=== PATIENT | female | born 1985 | race Caucasian/White ===

== ENCOUNTER 2016-11-26 19:29 | Emergency (ER) | payer MEDICAID, OTHER ==
[~2016-11-26] VITALS: Ht 160 cm; Wt 55.0 kg
[2016-11-26 19:58] VITALS: Ht 160 cm; Wt 55.0 kg
--- NOTE | 2016-11-26 21:18 | RADRPT ---
PROCEDURE: XR Chest. CLINICAL INDICATION: Cough. TECHNIQUE: Single frontal view of the chest. COMPARISON: None. FINDINGS: The cardiomediastinal silhouette is within normal limits. The lungs are clear. No signs of pleural f luid or pneumothorax are seen. The osseous structures and soft tissues are unremarkable. IMPRESSION: No evidence for active cardiopulmonary disease. RPTAT: [facility] Physician Yen Date Time Electronically viewed and signed by Physician Yen on 11/26/2016 21:18 RS/
[2016-11-26] MEDS ORDERED: MED4DP PO (21:41)
[2016-11-26] MEDS ORDERED: FEXO180T61 PO (21:41)
--- NOTE | 2016-11-26 21:54 | ERD ---
ER Documentation Chief Complaint Date/Time DATE: 11/26/16 TIME: 21:53 Chief Complaint cough x 3 weeks, sore throat HPI This is a 31-year-old female presents to the ER with a cough for the last 3 weeks. Patient states that cough is dry and constant and is worse at night. Patient denies any chest pain or shortness of breath. She does admit to occasional wheeze. She also admits to itchy throat and itchy ears. Patient denies any difficulty in swallowing. She denies any ear pain, tinnitus or discharge from her ear canal. Patient denies any fevers or chills. ROS 12 point review of systems was done, all negative except per HPI. Medications Home Meds Active Scripts Fexofenadine Hcl* (Michelle*) 180 Mg Tablet, 180 MG PO DAILY, #30 TAB Prov:TERESA FAULKNER 11/26/16 Methylprednisolone* (Medrol* DOSE PACK) 4 Mg/Dose-Pack Tab.ds.pk, 4 MG PO . DIRECTED for 6 Days, PACKET Prov:TERESA FAULKNER 11/26/16 Allergies Allergies: Coded Allergies: No Known Allergy (Unverified , 11/26/16) PMhx/Soc Medical and Surgical Hx: pt denies Medical Hx, pt denies Surgical Hx History of Surgery: No Anesthesia Reaction: No Hx Neurological Disorder: No Hx Respiratory Disorders: No Hx Cardiac Disorders: No Hx Psychiatric Problems: No Hx Miscellaneous Medical Probl: No Hx Alcohol Use: No Hx Substance Use: No Hx Tobacco Use: No Smoking Status: Never smoker Physical Exam Vitals Vital Signs Date Time Temp Pulse Resp B/P Pulse Ox O2 Delivery O2 Flow Rate FiO2 11/26/16 19:58 97.8 88 20 124/70 100 Physical Exam GENERAL: The patient is well-developed, well-nourished, in no acute distress. NECK: Cervical spine is non tender with no step off. Supple, no nuchal rigidity HEENT: Atraumatic. Pupils equal, round and reactive to light. Extraocular muscles are grossly intact. Conjunctivae pink, no discharge. Bilateral tympanic membranes are clear with no evidence of erythema, effusion or dulling of the light reflex. Tonsilar erythema with no exudates or uvular deviation. Clear rhinorrhea. RESPIRATORY: Clear to auscultation bilaterally. There are no rales, wheezes or rhonchi. HEART: Regular rate and rhythm. No murmurs, clicks, rubs or gallops. EXTREMITIES: No clubbing or cyanosis. Full range of motion. Grossly neurovascularly intact. NEUROLOGIC: Alert and oriented. Cranial nerves II through XII are intact. SKIN: There is no rash. The skin is warm and dry. Results 24 hrs [place] [id number] Radiology Main Line: [phone] DIAGNOSTIC IMAGING REPORT Patient: ALESHA WOOD : 1985 Age: 31 Sex: F MR #: [id number] DOS: 11/26/16 0000 Ordering MD: TERESA FAULKNER. PA-Masood Location: [facility] Room/Bed: PROCEDURE: XR Chest. CLINICAL INDICATION: Cough. TECHNIQUE: Single frontal view of the chest. COMPARISON: None. FINDINGS: The cardiomediastinal silhouette is within normal limits. The lungs are clear. No signs of pleural fluid or pneumothorax are seen. The osseous structures and soft tissues are unremarkable. IMPRESSION: No evidence for active cardiopulmonary disease. RPTAT: [facility] Physician Yen Date Time Electronically viewed and signed by Physician Yen on 11/26/2016 21:18 RS/ CC: TERESA FAULKNER Procedures/MDM Differential diagnosis includes but is not limited to; Viral URI, allergic rhinitis, bronchitis, pertussis,pneumonia. This is likely viral in etiology versus allergic. Patient will be sent home with a ManagerComplete Dosepak, Michelle. Clinical suspicion for pneumonia is low as patient appears well, is not hypoxic or in any respiratory distress. Additionally, patients physical examination is benign. Plan was discussed with patient they understand and agree. Patient needs to follow up with PCP in 1-2 days or return to ER sooner if symptoms worsen. Departure Diagnosis: Primary Impression: Cough Condition: Stable Patient Instructions: Allergic Rhinitis Additional Instructions: Llame al doctor MAANA y neftaly anuel FRANCESCO PARA DENTRO DE 1-2 BURGOS.Dgale a la secretaria que nosotros le instruimos hacer esta francesco.Avise o llame si rogers condicin se empeora antes de la francesco. Regresa aqui si peor o no mejor. TERESA FAULKNER Nov 26, 2016 21:54
== END 2016-11-26 21:52 | disposition home or self-care (01) ==
LOC: FTE 19:29
DX: R05 Cough (principal)
CPT/HCPCS: 71010; Z7502

== ENCOUNTER 2017-01-04 09:30 | Emergency (ER) | payer MEDICAID ==
[~2017-01-04] VITALS: Ht 149.9 cm; Wt 54.5 kg
[~2017-01-04 09:30] MED LIST: FEXO180T61 PO; MED4DP PO
[2017-01-04 09:50] VITALS: Ht 149.9 cm; Wt 54.5 kg
[2017-01-04] MEDS ORDERED: ALBUTEROL 0.083% (NEB) 2.5 MG/3 ML AMP HHN STA (11:40)
[2017-01-04] MEDS ORDERED: IPRATROPIUM (NEB) 0.5 MG/2.5 ML AMP HHN ONE (12:00)
--- NOTE | 2017-01-04 12:11 | RADRPT ---
PROCEDURE: XR Chest. CLINICAL INDICATION: Shortness of breath TECHNIQUE: Single frontal view of the chest was obtained COMPARISON: 11/26/2016 FINDINGS: The heart and mediastinum are within normal limits. The lungs are clear. There is no pleural effusion or pneumothorax. RPTAT: AA IMPRESSION: No acute disease. .Aston Garcia MD, MD Date Time Electronically viewed and signed by .Aston Garcia MD, on 01/04/2017 12:11 .S/
[2017-01-04] MEDS ORDERED: ALBU8.5H3 INH (12:16)
--- NOTE | 2017-01-04 13:11 | ERD ---
ER Documentation Chief Complaint Date/Time DATE: 01/04/17 TIME: 13:06 Chief Complaint sob, cwp, guerrero, dizziness x 1 month HPI 31 yr old female complaining of shortness of breath and chest pain x 1 month. Patient took tylenol without alleviation. Patient has never had this in the past. States that the pain shortness of breath comes and goes. No sick contacts.Patient does not know what caused this or makes it better. ROS All systems reviewed and are negative except as per history of present illness. Medications Home Meds Active Scripts Albuterol Sulfate* (Proair HFA*) 8.5 Gm Hfa.aer.ad, 2 PUFF INH Q4, #1 INHALER Prov:JOSE VALDEZ PA-C 01/04/17 Fexofenadine Hcl* (Michelle*) 180 Mg Tablet, 180 MG PO DAILY, #30 TAB Prov:TERESA FAULKNER 11/26/16 Methylprednisolone* (Medrol* DOSE PACK) 4 Mg/Dose-Pack Tab.ds.pk, 4 MG PO . DIRECTED for 6 Days, PACKET Prov:TERESA FAULKNER 11/26/16 Allergies Allergies: Coded Allergies: No Known Allergy (Unverified , 11/26/16) PMhx/Soc Medical and Surgical Hx: pt denies Medical Hx, pt denies Surgical Hx History of Surgery: No Anesthesia Reaction: No Hx Neurological Disorder: No Hx Respiratory Disorders: No Hx Cardiac Disorders: No Hx Psychiatric Problems: No Hx Miscellaneous Medical Probl: No Hx Alcohol Use: No Hx Substance Use: No Hx Tobacco Use: No Physical Exam Vitals Vital Signs Date Time Temp Pulse Resp B/P Pulse Ox O2 Delivery O2 Flow Rate FiO2 01/04/17 12:10 79 20 96 21 01/04/17 09:50 98.5 77 18 125/66 99 Physical Exam GENERAL: The patient is well-appearing, well-nourished, in no acute distress HEENT: Atraumatic. Conjunctivae are pink. Pupils equal, round, and reactive to light. There is no scleral icterus. Tympanic membranes clear bilaterally. Oropharynx clear. No nystagmus or photophobia. NECK: C-spine is soft and supple. There is no meningismus. There is no cervical lymphadenopathy. No JVD. No bruits. No goiter. CHEST: Clear to auscultation bilaterally. There are no rales, wheezes or rhonchi. HEART: Regular rate and rhythm. No murmurs, clicks, rubs or gallops. No S3 or S4. Results 24 hrs Current Medications Medications (Trade) Dose Ordered Sig/Soco Route PRN Reason Start Time Stop Time Status Last Admin Dose Admin Albuterol (Proventil 0.083% (Neb)) 1.25 mg ONCE STAT N 01/04/17 11:40 01/04/17 11:42 DC 01/04/17 11:58 Ipratropium [place] (Atrovent 0.02% (Neb)) 0.5 mg ONCE ONCE HHN 01/04/17 12:00 01/04/17 12:01 DC 01/04/17 11:59 Procedures/MDM DIAGNOSTIC IMAGING REPORT Patient: ALESHA WOOD : 1985 Age: 31 Sex: F MR #: [id number] DOS: 01/04/17 1140 Ordering MD: FRIDA VALDEZ PA-C Location: [facility] Room/Bed: PROCEDURE: XR Chest. CLINICAL INDICATION: Shortness of breath TECHNIQUE: Single frontal view of the chest was obtained COMPARISON: 11/26/2016 FINDINGS: The heart and mediastinum are within normal limits. The lungs are clear. There is no pleural effusion or pneumothorax. RPTAT: AA IMPRESSION: No acute disease. EKG:Normal sinus rhythm. [address] elevation. No arrhythmias. Reviewed and signed off by Dr. Hugo Croft MDM:31-year-old female coming in complaining of shortness of breath. I have low suspicion for cardiac emergency or pulmonary emergency. Patient's chest x- ray is within normal limits EKG is within normal limits. Patient will be sent home with medication and told to follow-up with primary care within 1-2 to days for close evaluation. Patient is told symptoms change or worsen to return the ER. Patient is to complied with plan Departure Diagnosis: Primary Impression: Shortness of breath Condition: Stable Patient Instructions: Chest Pain, Uncertain Cause Referrals: COMMUNITY CLINICS YOU HAVE RECEIVED A MEDICAL SCREENING EXAM AND THE RESULTS INDICATE THAT YOU DO NOT HAVE A CONDITION THAT REQUIRES URGENT TREATMENT IN THE EMERGENCY DEPARTMENT. FURTHER EVALUATION AND TREATMENT OF YOUR CONDITION CAN WAIT UNTIL YOU ARE SEEN IN YOUR DOCTORS OFFICE WITHIN THE NEXT 1-2 DAYS. IT IS YOUR RESPONSIBILITY TO MAKE AN APPOINTMENT FOR FOLOW-UP CARE. IF YOU HAVE A PRIMARY DOCTOR --you should call your primary doctor and schedule an appointment IF YOU DO NOT HAVE A PRIMARY DOCTOR YOU CAN CALL OUR PHYSICIAN REFERRAL HOTLINE AT IF YOU CAN NOT AFFORD TO SEE A PHYSICIAN YOU CAN CHOSE FROM THE FOLLOWING [facility] CL[facility] [address] [facility] [address] [facility] [address] [facility] [address] [facility] [address] [facility] [address] Additional Instructions: FOLLOW UP WITH YOUR PRIMARY CARE PHYSICIAN TOMORROW.Return to this facility if you are not improving as expected. JOSE VALDEZ PA-C Jan 04, 2017 13:11
== END 2017-01-04 12:55 | disposition home or self-care (01) ==
LOC: FTE 09:30
DX: R06.02 Shortness of breath (principal)
CPT/HCPCS: 71010; 94664; Z7502; Z7610

== ENCOUNTER 2018-12-24 11:56 | Emergency (ER) | payer MEDICAID ==
[~2018-12-24] VITALS: Wt 70.0 kg
[~2018-12-24 11:56] MED LIST changes: +ALBU8.5H8 INH; +CEPH-443 PO
[2018-12-24 12:05] VITALS: BP 106/59; PULSE 67; RESP 18
== END 2018-12-24 15:06 | disposition home or self-care (01) ==
LOC: FTE 11:56
DX: O20.9 Hemorrhage in early pregnancy, unspecified (principal); O23.12 Infections of bladder in pregnancy, second trimester; Z3A.14 14 weeks gestation of pregnancy
CPT/HCPCS: 36415; 76805; 81001; 84702; 85025; Z7502